=== PATIENT | female | born 1955 | race African-American/Black ===

== ENCOUNTER 2019-10-17 00:40 | Emergency (ER) | payer MEDICARE, OTHER ==
[~2019-10-17] VITALS: Ht 162.6 cm; Wt 73.6 kg
[~2019-10-17 00:40] MED LIST: AMLO10TA7 PO; IRBE1TAB31 PO; LORA10TA7 PO; OMEP20 PO; TRAZ-257 PO
[2019-10-17] MEDS ORDERED: LOSA1TAB42 PO (00:49)
[2019-10-17] MEDS ORDERED: ACETAMINOPHEN 500 MG TABLET PO ONE (02:00)
[2019-10-17] MEDS ORDERED: KETOROLAC TROMETHAMINE 30 MG/ML VIAL IM ONE (02:00)
[2019-10-17] MEDS ORDERED: LIDOCAINE 5% TRANSDERMAL PATCH TD ONE (02:00)
[2019-10-17] MEDS ORDERED: DIAZEPAM 5 MG TABLET PO ONE (02:00)
[2019-10-17 03:33] VITALS: BP 137/76
== END 2019-10-17 03:58 | disposition home or self-care (01) ==
LOC: EMS 00:46
DX: S13.4XXA Sprain of ligaments of cervical spine, initial encounter (principal); I10 Essential (primary) hypertension; Z88.5 Allergy status to narcotic agent; X58.XXXA Exposure to other specified factors, initial encounter; Y93.89 Activity, other specified; Y92.89 Other specified places as the place of occurrence of the external cause; Y99.8 Other external cause status
CPT/HCPCS: 96372; 99284; J1885